=== PATIENT | female | born 1985 | race Two or more races ===

== ENCOUNTER 2020-05-16 13:29 | Emergency (ER) | payer MEDICAID ==
[~2020-05-16] VITALS: Ht 165.1 cm; Wt 79.4 kg
[~2020-05-16 13:29] MED LIST: PREN27TA7 OR
[2020-05-16] MEDS ORDERED: ACETAMINOPHEN 500 MG TAB PO ONE (17:00)
[2020-05-16 17:32] VITALS: BP 145/76
== END 2020-05-16 17:36 | disposition home or self-care (01) ==
LOC: ER 13:29
DX: G62.9 Polyneuropathy, unspecified (principal); Z79.899 Other long term (current) drug therapy
CPT/HCPCS: 82962

== ENCOUNTER 2021-08-16 15:19 | Emergency (ER) | payer MEDICAID ==
[~2021-08-16] VITALS: Ht 165.1 cm; Wt 77.1 kg
[2021-08-16 15:22] VITALS: BP 123/72
[2021-08-16] MEDS ORDERED: ACETAMINOPHEN 650 mg PER 20.3 mL UD PO ONE (20:15)
== END 2021-08-16 20:16 | disposition home or self-care (01) ==
LOC: ER 15:19
DX: G44.209 Tension-type headache, unspecified, not intractable (principal); R20.2 Paresthesia of skin; I10 Essential (primary) hypertension; E11.9 Type 2 diabetes mellitus without complications; Z79.899 Other long term (current) drug therapy
CPT/HCPCS: 70450

== ENCOUNTER 2022-01-05 21:24 | Emergency (ER) | payer MEDICAID ==
[~2022-01-05] VITALS: Ht 165.1 cm; Wt 74.8 kg
[2022-01-05 21:24] VITALS: BP 119/58
[2022-01-06] MEDS ORDERED: CLIN300C8 PO (01:37)
== END 2022-01-06 01:52 | disposition home or self-care (01) ==
LOC: ER 21:24
DX: L02.219 Cutaneous abscess of trunk, unspecified (principal); E11.9 Type 2 diabetes mellitus without complications; I10 Essential (primary) hypertension
CPT/HCPCS: 71250; 74176

== ENCOUNTER 2022-09-16 19:37 | Emergency (ER) | payer MEDICAID ==
[~2022-09-16] VITALS: Ht 165.1 cm; Wt 80.8 kg
[~2022-09-16 19:37] MED LIST changes: +CLIN300C8 PO
[2022-09-16 21:42] LABS: Eosinophils # (auto) 0 10 ^3/uL (0-0.8); Eosinophils % (auto) 0.2 % (0.0-7.0); Hemoglobin 12.5 g/dL (12.2-16.2); Mean Corpuscular Hemoglobin 23.6 pg (28.0-32.0); Monocytes # (auto) 0.4 10 ^3/uL (0-1.3); White Blood Cell 11.3 10^3/uL (4.4-10.8)
[2022-09-16 21:43] LABS: Basophils # (auto) 0.1 10 ^3/uL (0-0.2); Basophils % (auto) 0.6 % (0.0-2.0); Hematocrit 38.1 % (36.0-46.0); Lymphocytes # (auto) 1.8 10 ^3/uL (0.4-5.4); Mean Corpuscular Hgb Conc. 32.7 g/dL (32.0-36.0); Mean Corpuscular Volume 72.1 fL (80.0-100.0); Monocytes % (auto) 3.3 % (0.0-12.0); Neutrophils % (auto) 79.9 % (37.0-80.0); Nucleated Red Blood Cells % 0.1 %; Red Blood Cells 5.28 10^6/uL (4.0-5.20); Red Cell Distribution Width 16.9 % (11.8-14.3)
[2022-09-16 22:05] LABS: Albumin 3.8 g/dL (3.4-5.0); BUN/Creatinine Ratio 17.6; Calcium 9.2 mg/dL (8.5-10.1); Potassium 3.8 mmol/L (3.5-5.1)
[2022-09-16 22:08] LABS: Bilirubin, Total 0.2 mg/dL (0.2-1.0); Total Protein 8.2 g/dL (6.4-8.2)
[2022-09-16 23:22] VITALS: BP 135/62
== END 2022-09-16 23:26 | disposition home or self-care (01) ==
LOC: ER 19:37
DX: R42 Dizziness and giddiness (principal); E11.9 Type 2 diabetes mellitus without complications; E78.5 Hyperlipidemia, unspecified; I10 Essential (primary) hypertension; Z86.2 Personal history of diseases of the blood and blood-forming organs and certain disorders involving the immune mechanism; Z79.2 Long term (current) use of antibiotics; Z79.899 Other long term (current) drug therapy
CPT/HCPCS: 36415; 70450; 80053; 85025; 93005

== ENCOUNTER 2024-12-09 13:03 | Emergency (ER) | payer MEDICAID ==
[~2024-12-09] VITALS: Ht 165.1 cm; Wt 70.1 kg
[~2024-12-09 13:03] MED LIST changes: +CLIN1CAP70 PO; -CLIN300C8 PO
[2024-12-09 15:18] LABS: Chloride 100 mmol/L (98-107)
[2024-12-09 15:19] LABS: Anion Gap 11 (5-15); Carbon Dioxide 24 mmol/L (20-31)
[2024-12-09 15:20] LABS: Calcium 9.1 mg/dL (8.7-10.4)
[2024-12-09 15:22] LABS: Potassium 3.5 mmol/L (3.5-5.1); Sodium 135 mmol/L (136-145)
[2024-12-09 15:25] LABS: Blood Urea Nitrogen 9 mg/dL (9-23); Glucose 358 mg/dL (74-106)
--- NOTE | 2024-12-09 15:26 | ED.PDOC ---
History of Present Illness HPI Comments This is a 39-year-old female who comes in with chief complaint of elevated blood sugar. The patient states that she went to her primary care doctor put her regular checkup today. She states that she has been unable to get any of her medications which include diabetic medications over the past two weeks. She had her blood sugar check there which was elevated. Upon arrival, her Accu-Chek was 355. She denies any polyuria but she has some increased thirst. She is currently on metformin 1000 mg b.i.d. and glipizide 5 mg p.o. b.i.d. the patient denies any blurred vision. Chief Complaint: Abnormal LAB's Time Seen by MD: 13:08 Primary Care Provider: NONE Reviewed Notes: Nurses Notes, Medications, Allergies (No allergies to medi cations) Allergies: Coded Allergies: NO KNOWN ALLERGIES (Unverified , 05/09/13) Home Meds Active Scripts Glipizide (Glipizide) 5 Mg Tab, 1 TAB PO BID, #60 TAB 3 Refills Prov:TIMI BUCHANAN MD 12/09/24 Metformin Hydrochloride (Metformin Hcl) 1,000 Mg Tab, 1 TAB PO BID, #60 TAB 5 Refills Prov:TIMI BUCHANAN MD 12/09/24 Clindamycin Hcl (Clindamycin Hcl) 300 Mg Cap, 1 CAP PO TID for 7 Days, #21 CAP 0 Refills Prov:GIL CEE 01/06/22 Vit W/ Ferrous Fumara () 1 Tab Tab, 1 TAB OR DAILY for 0 Days, TAB 0 Refills Prov:RULA CACERES DO 05/12/13 Vit W/ Ferrous Fumara () 1 Tab Tab, 1 TAB OR DAILY for 0 Days, TAB Prov:RULA CACERES DO 05/12/13 Vit W/ Ferrous Fumara () 1 Tab Tab, 1 TAB OR DAILY for 0 Days, TAB 0 Refills Prov:RULA CACERES DO 05/10/13 Information Source: Patient Mode of Arrival: Ambulatory Severity: Mild Timing: Days Duration: Since onset Prehospital treatment: None Associated signs and symptoms Elevated blood sugar Past Medical History PAST MEDICAL HISTORY: Anemia, DM, High Lipids Surgical History: BTL, 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 History Family History Family History: Family hx of DM, Family hx of heart celia Family History (Other): Thyroid disease Social History Smoker: Non-Smoker Alcohol: Occasionally Drugs: Marijuana Lives In: Home Constitutional: denies: chills, diaphoresis, fatigue, fever, malaise, sweats, weakness, others EENTM: denies: blurred vision, double vision, ear bleeding, ear discharge, ear drainage, ear pain, ear ringing, eye pain, eye redness, hearing loss, mouth pain, mouth swelling, nasal discharge, nose bleeding, nose congestion, nose pain, photophobia, tearing, throat pain, throat swelling, voice changes, others Respiratory: denies: cough, hemoptysis, orthopnea, SOB at rest, shortness of breath, SOB with excertion, stridor, wheezing, others Cardiovascular: denies: chest pain, dizzy spells, diaphoresis, Dyspnea on exertion, edema, irregular heart beat, left arm pain, lightheadedness, palpitations, PND, syncope, others Gastrointestinal: denies: abdomen distended, abdominal pain, blood streaked bowels, constipated, diarrhea, dysphagia, difficulty swallowing, hematemesis, melena, nausea, poor appetite, poor fluid intake, rectal bleeding, rectal pain, vomiting, others Genitourinary: denies: abnormal vagina bleeding, burning, dyspareunia, dysuria, flank pain, frequency, hematuria, incontinence, pain, , vagina discharge, urgency, others Neurological: denies: dizziness, fainting, headache, left sided numbness, left sided weakness, numbness, paresthesia, pre-existing deficit, right sided numbness, right sided weakness, seizure, speech problems, tingling, tremors, weakness, others Musculoskeletal: denies: back pain, gout, joint pain, joint swelling, muscle pain, muscle stiffness, neck pain, others Integumetry: denies: bruises, change in color, change in hair/nails, dryness, laceration, lesions, lumps, rash, wounds, others Allergic/Immunocompromised: denies: Difficulty Healing, Frequent Infections, Hives, Itching, others Hematologic/Lymphatic: denies: anemia, blood clots, easy bleeding, easy bruising, swollen glands, others Endocrine: reports: excessive thirst; denies: excessive hunger, excessive sweating, excessive urination, flushing, intolerance to cold, intolerance to heat, unexplained weight gain, unexplained weight loss, others Psychiatric: denies: anxiety, bipolar disorder, depression, hopeless, panic disorder, schizophrenia, sleepless, suicidal, others Physical Exam General Appearance: No Apparent Distress HEENT: Normal ENT Inspection, Pharynx Normal, TMs Normal Neck: Full Range of Motion, Non-Tender, Normal, Normal Inspection Respiratory: Chest Non-Tender, Lungs Clear, No Accessory Muscle Use, No Respiratory Distress, Normal Breath Sounds Cardiovascular: No Edema, No JVD, No Murmur, No Gallop, Normal Peripheral Pulses, Regular Rate/Rhythm Breast Exam: Deferred Gastrointestinal: No Organomegaly, Non Tender, No Pulsatile Mass, Normal Bowel Sounds, Soft Genitalia: Deferred Pelvic: Deferred Rectal: Deferred Extremities: No calf tenderness, Normal capillary refill, Normal inspection, Normal range of motion, Non-tender, No pedal edema Musculoskeletal : Apperance: Normal Neurologic: Alert, distillation operator II-XII nml as Tested, No Motor Deficits, Normal Affect, Normal Mood, No Sensory Deficits Cerebellar Function: Normal Reflexes: Normal Skin: Dry, Normal Color, Warm Lymphatic: No Adenopathy Was a procedure done? Was a procedure done?: No Differential Dx Considerations may include: UTI, hyperglycemia, DKA, electrolyte imbalance X-Ray, Labs, Meds, VS Vital Signs Date Time Temp Pulse Resp B/P (MAP) Pulse Ox O2 Delivery O2 Flow Rate FiO2 12/09/24 15:40 98.6 86 18 145/77 (99) 98 98.6 12/09/24 15:40 Room Air* 0 21 12/09/24 13:04 98.0 100 16 139/47 (77) 100 98.0 Lab Test 12/09/24 14:40 12/09/24 14:00 12/09/24 13:41 Range/Units Sodium Level 135 L 136-145 mmol/L Potassium Level 3.5 3.5-5.1 mmol/L Chloride Level 100 98-107 mmol/L Carbon Dioxide Level 24 20-31 mmol/L Anion Gap 11 5-15 Blood Urea Nitrogen 9 9-23 mg/dL Creatinine 0.69 0.550-1.02 mg/dL Glomerular Filtration Rate Calc 113 >90 mL/min BUN/Creatinine Ratio 13.0 10.0-20.0 Serum Glucose 358 H 74-106 mg/dL Calcium Level 9.1 8.7-10.4 mg/dL Urine Color Light-yellow Yellow Urine Clarity Clear Clear Urine pH 6.0 5.0-9.0 Urine Specific [place] 1.031 1.001-1.035 Urine Protein Trace H Negative Urine Ketones 2+ H Negative Urine Blood 1+ H Negative /uL Urine Nitrite Negative Negative Urine Bilirubin Negative Negative Urine Urobilinogen Normal Negative mg/dL Urine Leukocyte Esterase Negative Negative /uL Urine RBC 1 0 - 4 /hpf Urine Microscopic WBC < 1 0-5 /HPF Urine Squamous Epithelial Cells Few <5 /hpf Urine Bacteria None seen None Seen /hpf Urine Glucose 4+ H Normal mg/dL POC Glucose 355 H 70-106 mg/dl The patient's chemistry panel shows: No sign of any abnormalities except for a glucose of 355 The urine test is positive for glucose but no sign of any infection At this time, the patient will be discharged The patient had a refill of metformin and glipizide The patient will follow up with the primary care doctor Time of 1ST Reevaluation: 15:26 Reevaluation 1ST: Unchanged Patient Education/Counseling: Diagnosis, Treatment, Prognosis, Need For Follow Up Family Education/Counseling: No Family Present Departure 1 Departure Time of Disposition: 18:01 Impression: Primary Impression: Hyperglycemia Additional Impression: Medication refill Disposition: 01 HOME / SELF CARE / HOMELESS Condition: Fair e-Prescriptions Glipizide (Glipizide) 5 Mg Tab 1 TAB PO BID, #60 TAB 3 Refills Prov: TIMI BUCHANAN MD 12/09/24 Metformin Hydrochloride (Metformin Hcl) 1,000 Mg Tab 1 TAB PO BID, #60 TAB 5 Refills Prov: TIMI BUCHANAN MD 12/09/24 Discharged With: Self Critical Care Note Critical Care Time?: No Stability Stability form required: No Heart Score Heart Score: Heart Score Response (Comments) Value History N/A 0 EKG N/A 0 Age N/A 0 Risk Factors N/A 0 Troponin N/A 0 Total 0 TIMI BUCHANAN MD December 09, 2024 15:26
[2024-12-09] MEDS ORDERED: METF-372 PO (15:27)
[2024-12-09] MEDS ORDERED: GLIP5TAB21 PO (15:27)
[2024-12-09 17:32] LABS: Urine Bacteria None Seen /hpf (None Seen)
[2024-12-09 17:45] LABS: Urine Blood 1+ /uL (Negative); Urine Clarity Clear (Clear); Urine Color Light-Yellow (Yellow); Urine Protein, UAD TRACE (Negative); Urine Specific Gravity 1.031 (1.001-1.035); Urine Squamous Epithelial Cell FEW /hpf (<5); Urine Urobilinogen Normal (Negative)
[2024-12-09 17:46] LABS: Urine WBC < 1 /HPF (0-5)
[2024-12-09 21:53] VITALS: BP 150/84; PULSE 82; RESP 19; TEMP 98.6; O2SAT 99
[2024-12-09] MEDS: SODIUM CHLORIDE 0.9% 1,000 ML IV ONE (22:47)
[2024-12-09] MEDS: InsuLIN REG 1unit/0.01ml Soln (100units/ml) IV ONE (22:47)
== END 2024-12-09 23:00 | disposition home or self-care (01) ==
LOC: ER 13:09
DX: E11.65 Type 2 diabetes mellitus with hyperglycemia (principal); E78.5 Hyperlipidemia, unspecified; F12.90 Cannabis use, unspecified, uncomplicated; Z98.51 Tubal ligation status; Z76.0 Encounter for issue of repeat prescription
CPT/HCPCS: 36415; 80048; 81001; 82947; 96361; 96374; 99283; J1815; J7030; 82962